=== PATIENT | male | born 1980 | race Caucasian/White ===

== ENCOUNTER → 2018-10-10 09:50 | Emergency (ER) | payer SELFPAY ==
--- OUTSIDE RECORDS SUMMARY | 2018-10-10 09:53 | XMS REPORT ---
Author Author [facility] Address Unknown Phone Unavailable Care Team Providers Care Farm Tractor Operator Name Role Phone DR AINSLEY IZAGUIRRE Unavailable Unavailable Problems This patient has no known problems. Allergies, Adverse Reactions, Alerts This patient has no known allergies or adverse reactions. Medications This patient has no known medications. Encounters Start Date/Time End Date/Time Encounter Type Admission Type Attending [facility] Facility Care Department Encounter ID 2018-02-21 09:22:00 2018-02-21 14:30:00 Outpatient [facility] [id number] Results Test Description Test Time Test Comments Text Results Atomic Results Result Comments GLUCOMETER GLUCOSE- LAB USE ONLY 2018-02-21 13:32:00 GLUCOMETER (test code=GMG) 223 mg/dL 70-100 Meter ID: [id number]: [id number] GLUCOMETER GLUCOSE- LAB USE [id number] 10:51:00* Test Item Value Reference Range Comments GLUCOMETER (test code=GMG) 201 mg/dL 70-100 Meter ID: [id number]: [id number]
--- OUTSIDE RECORDS SUMMARY | 2018-10-10 09:53 | XMS REPORT | Summary of Care ---
Author Author [facility] Organization [facility] Address Unknown Phone Unavailable Encounter [facility] [id number] Date(s): 01/29/18 - 01/29/18 [facility] [address] [place] [address]- Discharge Disposition: Discharged to Home or Self Care Attending Physician: Aidan Perea MD Admitting Physician: Aidan Perea MD Referring Physician: Aidan Perea MD Vital Signs No data available for this section Problem List No data available for this section Allergies, Adverse Reactions, Alerts No data available for this section Medications No data available for this section Results No data available for this section Immunizations No data available for this section Procedures No data available for this section Social History No data available for this section Assessment and Plan No data available for this section
--- OUTSIDE RECORDS SUMMARY | 2018-10-10 09:53 | XMS REPORT | Continuity of Care Document ---
Author Author [facility] Address Unknown Phone Unavailable Care Team Providers Care Byproducts Operator Name Role Phone [facility] Unavailable Unavailable Problems No Data Provided for This Section Medications No Data Provided for This Section Allergies, Adverse Reactions, Alerts No Known Medication Allergies Immunizations No Data Provided for This Section Results No Data Provided for This Section Pathology Reports No Data Provided for This Section Diagnostic Reports No Data Provided for This Section Consultation Notes No Data Provided for This Section Discharge Summaries No Data Provided for This Section History and Physicals No Data Provided for This Section Vital Signs No Data Provided for This Section Encounters Location Location Details Encounter Type Encounter Number Reason For Visit Attending Provider ADM Date DC Date Status Source [facility] Out[facility] [id number] Aidan Perea 01/29/2018 01/29/2018 [facility] [id number] Aidan Perea 01/29/2018 01/30/2018 [facility] Procedures No Data Provided for This Section Assessment and Plan No Data Provided for This Section Plan of Care No Data Provided for This Section Social History Social History Date Source No data available for this section 01/30/2018 [facility] Family History No Data Provided for This Section Advance Directives No Data Provided for This Section Functional Status No Data Provided for This Section
== END | disposition short-term general hospital (02) ==
LOC: ER 09:50
DX: R73.9 Hyperglycemia, unspecified (principal)